=== PATIENT | male | born 1975 | race Caucasian/White ===

== ENCOUNTER 2021-05-30 01:35 | Emergency (ER) | payer OTHER ==
[~2021-05-30] VITALS: Ht 175.3 cm; Wt 73.5 kg
--- NOTE | 2021-05-30 01:40 | NUR ---
PT JULIA ALS. TAKEN TO BED 4
[2021-05-30 01:47] VITALS: BP 151/97
--- NOTE | 2021-05-30 01:51 | NUR ---
received pt from EMS and placed to bed 04. pt currently a/o x 2, gcs 12. pt is a 46 year old male with uknown hx biba from a hotel for possible drug ingestion. per EMS, was told by hotel employees that pt drank an uknown brown liquid and started becoming altered after. PERRL at this time. CR<3s. normopneic on RA
[2021-05-30 02:17] LABS: BASOPHILS # (AUTO) 0.1 K/uL (0.00-0.22); BASOPHILS % (AUTO) 0.7 % (0.0-2.0); EOSINOPHILS # (AUTO) 0.1 K/uL (0-0.4); EOSINOPHILS % (AUTO) 1.3 % (0.0-4.0); HEMATOCRIT 38.9 % (36-52); HEMOGLOBIN 12.5 g/dL (12.0-18.0); LYMPHOCYTES # (AUTO) 2.2 K/uL (2.0-11.5); LYMPHOCYTES % (AUTO) 24.9 % (20.5-51.1); MEAN CORPUSCULAR HEMOGLOBIN 27 pg (27-31); MEAN CORPUSCULAR HGB CONC 32 g/dL (33-37); MEAN CORPUSCULAR VOLUME 83.8 fL (80-94); MONOCYTES # (AUTO) 0.7 K/uL (0.8-1.0); MONOCYTES % (AUTO) 7.3 % (1.7-9.3); NEUTROPHILS # (AUTO) 5.9 K/uL (1.8-7.7); NEUTROPHILS % (AUTO) 65.8 % (42.2-75.2); PLATELET COUNT (AUTO) 374 K/uL (140-450); RED BLOOD CELL COUNT(AUTO) 4.64 MIL/uL (4.20-6.10); RED CELL DISTRIBUTION WIDTH 17.1 % (11.6-13.7); WHITE BLOOD COUNT (AUTO) 8.9 K/uL (4.8-10.8)
[2021-05-30 02:33] LABS: ALBUMIN 3.8 g/dL (3.4-5.0); ANION GAP 8.5 (8-16); ASPARTATE AMINOTRANSFERASE 21 U/L (15-37); CARBON DIOXIDE 29.3 mmol/L (21-32); CHLORIDE 103 mmol/L (98-107); CREATININE 1.2 mg/dL (0.6-1.3); GFR ARICAN-AMERICAN 85 mL/min (>90); GLUCOSE 123 mg/dL (74-106); POTASSIUM 3.8 mmol/L (3.5-5.1); SODIUM SERUM 137 mmol/L (136-145); TOTAL BILIRUBIN 0.2 mg/dL (0.0-1.0); UREA NITROGEN, BLOOD 17 mg/dL (7-18)
--- NOTE | 2021-05-30 02:33 | NUR ---
jackie collected and taken to lab.
--- NOTE | 2021-05-30 02:33 | NUR ---
URINE COLLECTED AND WALKED TO LAB
[2021-05-30 02:35] LABS: ACETAMINOPHEN < 0.5 ug/ml (10-30); SALICYLATE < 2.8 mg/dL (2.8-20.0)
[2021-05-30 02:38] LABS: BARBITURATE, URINE NEGATIVE ng/ml (NEG <=200); BENZODIAZEPINE, URINE NEGATIVE ng/mL (NEG <=200); CANNABINOID, URINE POSITIVE ng/mL (NEG <=50); COCAINE, URINE NEGATIVE ng/mL (NEG <=300)
[2021-05-30 02:39] LABS: OPIATE, URINE NEGATIVE ng/mL (NEG <=2000); PHENCYCLIDINE SCREEN,URINE NEGATIVE ng/mL (NEG <=25)
--- NOTE | 2021-05-30 03:03 | NUR ---
PT APPEARS TO BE RESTING. EQUAL RISE AND FALL OF CHEST WALL. VITAL SIGNS WNL. ALL NEEDS MET AT THIS TIME. BED LOCKED IN LOWEST POSITION.
--- NOTE | 2021-05-30 04:25 | NUR ---
pt is awake and alert. I asked pt if he was ready for discharge, pt stated "yea". pt does not want to get out bed. security is at bedside.
[2021-05-30 04:31] VITALS: BP 129/58
--- NOTE | 2021-05-30 04:31 | NUR ---
Patient discharged with v/s stable. Written and verbal after care instructions given and explained. Patient verbalized understanding. Ambulatory with steady gait. All questions addressed prior to discharge. Advised to follow up with PMD. pt provided with homeless packet, pt left packet behind.
--- NOTE | 2021-05-30 04:35 | NUR ---
PER SECURITY [place], PT ASKED HIM TO LEAVE HIM AT THE BUS STOP.
== END 2021-05-30 04:31 | disposition home or self-care (01) ==
LOC: MED 01:35
DX: F19.10 Other psychoactive substance abuse, uncomplicated (principal); Z20.822 Contact with and (suspected) exposure to COVID-19
CPT/HCPCS: 36415; 80053; 80305; 85025; 87426; 99283; G0480; G0482